=== PATIENT | male | born 1945 | race Caucasian/White ===

== ENCOUNTER 2018-04-13 06:52 | Inpatient (IN) ==
--- NOTE | 2018-04-12 23:45 | Discharge Summary ---
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 transplanted heart: [place] heart Associated angina: without angina Qualified Code(s): I25.810 - Atherosclerosis of coronary artery bypass graft(s) without angina pectoris (5) HTN (hypertension) Priority: Secondary Status: Chronic Qualifiers: Hypertension type: essential hypertension Qualified Code(s): I10 - Essential (primary) hypertension (6) Hx of CABG Priority: Secondary Status: Chronic - Hospital Course Hospital course: Mr. Downey is a 72 year old male - Time Spent with Patient Total time spent providing and/or coordinating discharge services: - Discharge Medications Home Medications: Atorvastatin [Lipitor] 40 mg PO QPM 08/16/15 [History] OxyCODONE Immed Rel [Roxicodone 5 MG] 5 mg PO Q6HR PRN 7 Days #28 tablet [Rx] Acetaminophen [Tylenol] 500 mg PO DAILY PRN 04/13/18 [History] Aspirin [Adult Aspirin] 81 mg PO DAILY 04/13/18 [History] Calcium Crb,Cit/D3/Min34/Ash [Citracal + Bone Density Tablet] 1 tab PO DAILY 04/13/18 [History] Lisinopril [Zestril] 20 mg PO DAILY 04/13/18 [History] Metoprolol Succinate [Kapspargo Sprinkle] 50 mg PO DAILY 04/13/18 [History] Multivitamin [Multivitamins] 1 each PO DAILY 04/13/18 [History] amLODIPine [Norvasc] 5 mg PO DAILY 04/13/18 [History] Allergies/Adverse Reactions: 3 Allergy/AdvReac Type Severity Reaction Status Date / Time No Known Allergies Allergy Verified 04/13/18 08:16 Primary care physician: Inocencio Kline MD - Patient Status Disposition: Home, Self-Care Condition: Good - Discharge Instructions Follow Up With: Inocencio Kline MD [Primary Care Provider] - <Shayy Quintanilla - Last Filed: 04/13/18 15:36> Orders not resulted at time of discharge: Pending orders 04/13/18 00:01 XR shoulder complete LT [XR] Routine H/H [Hemoglobin and Hematocrit] [HEME] Routine Date of Encounter: 04/13/18 Time of Encounter: 15:30 - Discharge Diagnosis (1) Status post reverse total replacement of left shoulder Priority: Primary Status: Acute Comments: Opsite dressing, leave intact until first post-operative visit. Zipline in place , plan to remove at post-operative day #14-16. If dressing becomes >50% saturated, contact office, remove dressing and place appropriate dressing in its place. Do not allow for dressing to get wet. Shoulder Precautions x 6 weeks. Apply cold therapy wrap 3-6x/day for 20 minutes at a time. Encourage ambulation throughout the day. Use Incentive spirometer 10x/hour. Elevate affected extremity above heart as tolerated. NWB to affected upper extremity x 6 weeks. Will remove brace at first post-operative appointment. OK to remove during PT/ OT and Home exercises. (2) Rotator cuff arthropathy of left shoulder Priority: Primary Status: Chronic (3) Hx of CABG Priority: Secondary Status: Chronic (4) CAD (coronary artery disease) Priority: Secondary Status: Chronic Qualifiers: Coronary Disease-Associated Artery/Lesion type: bypass graft [place] vs. transplanted heart: [place] heart Associated angina: without angina Qualified Code(s): I25.810 - Atherosclerosis of coronary artery bypass graft(s) without angina pectoris (5) HTN (hypertension) Priority: Secondary Status: Chronic Qualifiers: Hypertension type: essential hypertension Qualified Code(s): I10 - Essential (primary) hypertension - Hospital Course Hospital course: Mr. Downey is a 72 year old male, status post TSR-reverse. Patient had uneventful postoperative course. Stable for discharge. Afebrile, vital signs stable. Vital Signs Temp Pulse Resp BP Pulse Ox 04/13/18 12:40 97.6 F 57 111/71 95 04/13/18 11:50 97.7 F 58 137/79 94 04/13/18 11:14 97.7 F 66 128/77 93 04/13/18 10:42 97.7 F 56 12 128/76 92 04/13/18 10:32 97.3 F L 56 16 120/75 96 04/13/18 10:22 97.2 F L 56 16 126/75 94 04/13/18 10:12 57 16 126/79 94 04/13/18 10:02 57 16 125/77 94 04/13/18 09:52 97.5 F L 58 16 127/86 100 04/13/18 08:11 61 16 109/76 96 04/13/18 07:59 62 16 136/80 95 04/13/18 07:14 97.8 F 63 18 129/74 94 Intake and Output 04/12/18 04/13/18 04/13/18 23:59 07:59 15:59 Intake Total 20 / 20 Output Total 50 / 50 Balance -30 / -30 Intake: IV Fluids 20 / 20 Ancef Syringe 2,000 MG/20 ML 2, 20 / 20 000 mg In 20 ml @ 200 mls/hr IVPB PREOP ONE Rx#:[id number] Output: Estimated Blood Loss 50 / 50 Other: Weight 86.183 kg Patient Weight 04/13/18 23:59 Weight 86.183 kg Labs reviewed. H/H - stable, asymptomatic Short CBC 04/13/18 Range/Units 10:11 Hgb 12.6 L (12.9-16.9) g/dL Hct 38.4 (37.5-50.1) % Pain control: adequate Participating in PT. All questions and concerns addressed. Educated on use of incentive spirometer. Encouraged ambulation and proper hydration. Patient educated on post-operative restrictions and post-operative care. Assessment and plan: Continue with postoperative care Discharge plan: Home, discharge today with OP. - Time Spent with Patient Total time spent providing and/or coordinating discharge services: Date of admission: 04/13 Primary care physician: Inocencio Kline MD Discharging clinician: Shayy Quintanilla Anticipated date of discharge: 04/13/18 - Patient Status Functional capacity at discharge: independent ambulation Overall status at discharge: patient is progressing back to baseline
[2018-04-13] MEDS ORDERED: CeFAZolin Syr 2,000MG/20 ML 2,000 MG/20 ML SYRINGE IVPB ONE (07:14)
[2018-04-13] MEDS ORDERED: Ringers Solution, Lactated 500 ML IVC SCH (07:15)
--- NOTE | 2018-04-13 07:24 | Anesthesia Evaluation PreOp ---
Date of Encounter: 04/13/18 Time of Encounter: 07:22 - Past History Planned Operation: L total shoulder replacement reverse ball and socket Cardiac History: HTN, Hyperlipidemia, Cardiac Surgery (CABG x 4), Other (stress 05/2015: negative for ischemia EF 65%) Pulmonary History: Denies Any Significant HX [employer]PER History: Denies Any Significant HX Other Medical History: Other (diverticular bleed) Anesthesia History: No Prior Anesthetic Complications, Past Anesthesia ( colonoscopy,CABG, renetta shoulder sx) Alcohol Use: none Drug use: none Medications and Allergies Atorvastatin [Lipitor] 40 mg PO QPM 08/16/15 [History] Metoprolol XL (24 HR) Succ [Toprol Xl] 50 mg PO QPM 08/16/15 [History] Bifidobacter. Bifidum/B.longum [Florajen Bifidoblend Capsule] 460 mg PO BID #60 capsule 08/20/15 [Rx] Omeprazole [PriLOSEC] 40 mg PO DAILY #30 cap 08/20/15 [Rx] Cyclobenzaprine [Flexeril] 10 mg PO TID #30 tablet 09/27/16 [Rx] predniSONE [PredniSONE] 40 mg PO BIDWM #10 tablet 09/27/16 [Rx] OxyCODONE Immed Rel [Roxicodone 5 MG] 5 mg PO Q6HR PRN 7 Days #28 tablet [Rx] 3 Allergy/AdvReac Type Severity Reaction Status Date / Time No Known Allergies Allergy Verified 09/21/16 18:45 - Meds/Allergy Pre-op Review Medications Reviewed: Yes Allergies Reviewed: Yes Beta Blockers on Current Med List: Yes If Beta Blockers taken, Date/Time (Last Dose taken): Anesthesia Results - Labs Laboratory Tests 03/23/18 03/23/18 08:52 08:52 WBC 6.7 Hgb 15.2 Hct 45.7 Plt Count 208 Sodium 139 Potassium 4.1 Chloride 105 Carbon Dioxide 29 BUN 13 Creatinine 0.85 Glucose 100 - Imaging EKG: report reviewed (SINUS BRADYCARDIA WITH FIRST DEGREE AV BLOCK Electronically Signed On 12-08-2017 7:21:06 EDT by Goldie Kam) Anesthesia Exam O2 Sat Height 1.73 m Height 1.73 m Height 1.73 m Weight 86.183 kg Weight 86.183 kg Weight 86.183 kg O2 Sat by Pulse Oximetry 94 Vital Signs Temp Pulse Resp BP Pulse Ox 97.8 F 63 18 129/74 94 04/13/18 07:14 04/13/18 07:14 04/13/18 07:14 04/13/18 07:14 04/13/18 07:14 Height: 68" Weight: 190lbs NPO (# of Hours): >8 - HEENT Pupil (Motor): Pupils equal, EOMI Mallampati: II Teeth: Prosthesis Denture Type: Upper: Partial, Lower: Partial Oral Opening: Greater than 3 - [employer]LE [employer] LOC: Oriented [employer] Motor: Normal RUE, Normal LUE, Normal RLE, Normal LLE, Normal Face [employer] Sensory: Normal: RUE, LUE, RLE, LLE, Face - Cardiac Rhythm: Regular - Pulmonary Breath Sounds: bilateral Clear Respiratory Effort: Symmetrical Anesthesia Assess/Plan ASA Score: 3 Modified Desirae Scale for Level of Consciousness: Cooperative, oriented, and tranquil Anesthetic Plan: General, Regional (L brachial plexus) Monitoring Plan: Standard Monitors Recovery Plan: PACU
[2018-04-13] MEDS ORDERED: Acetaminophen IV 1,000 MG/100 ML INFUS..BTL ONE (07:30)
[2018-04-13] MEDS ORDERED: Lidocaine -MPF 2% 2 ML VIAL ONE (07:31)
[2018-04-13] MEDS ORDERED: Ondansetron 4 MG/2 ML VIAL ONE (07:31)
[2018-04-13] MEDS ORDERED: *HR* FentaNYL (PF) 100 MCG/2 ML VIAL ONE ×2 (07:31→10:45)
[2018-04-13] MEDS ORDERED: *HR* Midazolam HCl 2 MG/2 ML VIAL ONE (07:31)
[2018-04-13] MEDS ORDERED: Dexamethasone 4 MG/ML VIAL ONE (07:31)
[2018-04-13] MEDS ORDERED: *HR* Succinylcholine 200 MG/10 ML VIAL IVP ONE (07:31)
[2018-04-13] MEDS ORDERED: *HR* Propofol 200 MG/20 ML VIAL IVP ONE (07:32)
--- NOTE | 2018-04-13 07:42 | History & Physical Report ---
Date of Encounter: 04/13/18 Time of Encounter: 07:42 24 Hour HP Update - Instructions Instructions: If the History and Physical is less than 30 days old and was completed prior to A.M. admission and or procedure and has NOT been updated on calendar day of procedure please complete this update prior to performing procedure. - Update Patient reports changes in Medical Condition: No Changes in examination, assessment, or condition: No Changes in Medication: No Preop tests/diagnostics Reviewed: Yes Surgery Remains Indicated: Yes Consent for Planned Operative Procedure(s) Verified: Yes - Pre-Operative Checklist Preoperative Checklist Indicated: No Prophylactic Antibiotic Ordered: Yes Is VTE Prophylaxis Indicated?: Yes
[2018-04-13] MEDS ORDERED: ROPIVACAINE HCL/PF 0.5% 30 ML VIAL ONE (07:50)
[2018-04-13] MEDS ORDERED: Bupivacaine/Clonidine Syringe 1 EACH SYRINGE ONE (07:50)
[2018-04-13] MEDS ORDERED: *HR* HYDROmorphone (PF) 1 MG/ML SYRINGE IVP PRN ×2 (08:13→08:14)
[2018-04-13] MEDS ORDERED: Ondansetron 4 MG/2 ML VIAL IVP ONE ×2 (08:13→08:14)
[2018-04-13] MEDS ORDERED: *HR* OxyCODONE Immed Rel 5 MG TABLET PO PRN ×2 (08:13→10:59)
[2018-04-13] MEDS ORDERED: *HR* Promethazine 25 MG/ML VIAL IVP PRN ×2 (08:13→08:14)
[2018-04-13] MEDS ORDERED: *HR* Labetalol 20 MG/4 ML SYRINGE IVP PRN (08:13)
[2018-04-13] MEDS ORDERED: *HR* OxyCODONE/APAP 5/325 TABLET PO PRN ×2 (08:14→10:59)
[2018-04-13] MEDS ORDERED: Ringers Solution, Lactated 1,000 ML IVC SCH ×2 (08:15→10:59)
--- NOTE | 2018-04-13 08:18 | Anesthesia Procedures ---
Date of Encounter: 04/13/18 Time of Encounter: 08:02 Procedures: Anesthesia - Nerve Block Procedure Date: 04/13/18 Time: 08:02 Allergies/Adv Reactions: NKDA Surgical Procedure: L Total Shoulder Arthroplasty Checklist: Correct Patient Identifier, Correct procedure, History checked Correct side: Left Blood Thinner: No Monitor Applied: EKG, BP, Pulse Oximetry Supplemental Oxygen via Nasal Cannula (L/min): 2 Sedation: Versed (mg): 2 Sedation: Fentanyl (mcg): 100 Indication: Post Op Analgesia Pre-op Neuro Deficits: No Block Type: Supraclavicular, Other (Intercostobracheal and Intermediate Cervical Plexus Block) Catheter placed: No Sterile Technique: Yes Ultrasound used: Yes Anatomy identified: Yes Visual spread of Local: Yes Neuro Stimulation: No Blood on Needle Aspiration: No Smooth Injection of Local: Yes Pain with Injection of Local: No Prep: Chlorhexadine Needle: 22 x 50 mm Stimuplex Local: 0.25% Bupivicaine w/Clonidine 20 mcg/cc (10mL for Intercostobracheal and 10mL for Intermediate Cervical Plexus Block), Ropivacaine (30mL 0f 0.5% Ropivacaine with 8mg of decadron for Supraclavicular Block) Number of Attempts: 1 Complications: None/effective block Vitals: Vital Signs/O2 Sat/Glucose, Most Recent Temp Pulse Resp BP Pulse Ox 97.8 F 61 16 109/76 96 04/13/18 07:14 04/13/18 08:11 04/13/18 08:11 04/13/18 08:11 04/13/18 08:11
[2018-04-13] MEDS ORDERED: Lidocaine -MPF 4% 5 ML AMPUL ONE (08:36)
[2018-04-13] MEDS ORDERED: *HR* PHENYLEPHRINE 1,000 MCG/10 ML SYRINGE IVP ONE ×2 (08:45→09:27)
--- NOTE | 2018-04-13 09:43 | Orthopedic Operative Note ---
Date of procedure: 04/13/18 Pre-op diagnosis: Left shoulder cuff tear arthropathy Post-op diagnosis: same Procedure: Procedure: Total Shoulder Replacment Reverse, left hardware removal Estimated blood loss: 50 cc Hardware: Metal and polyethylene replacement: Arthrex 28, +2 , 30 screw glenoid baseplate, 2 4.5 screws. 2 5.5 screw, 42+4 glenosphere, 11 humeral stem , poly insert 3 Exam Under anesthesia: Full motion no stability Procedural Notes: Irreparable tear rotator cuff Operative procedure: The patient was brought to the operating room and placed on the operating room table. After general anesthesia was administered the operative shoulder was examined. Findings were noted. The patient was placed in the modified beachchair position. All pressure points were padded appropriately. And the head was stabilized in the neutral position. The operative extremity was prepped and draped in the sterile surgical fashion. The patient received IV antibiotics prior to skin incision. A standard deltopectoral approach was made to the operative shoulder. Incision was made to the skin and subcutaneous tissue,hemo stasis was obtained with Bovie cautery. Using careful blunt dissection the cephalic vein was identified and mobilized medially. The deltopectoral interval was developed and the clavipectoral fascia was incised. The subscap was released off the lesser tuberosity and tagged with #2 FiberWire suture subscap irreparable. The humerus was dislocated patient noted to have irreparable tear supraspinatus tendon, and the humeral cut was made along the anatomic neck. Anterior and posterior Bankart retractors were placed to expose the glenoid. The glenoid guide was seated and the centering hole was made. It was reamed with the appropriate reamer. The 28 millimeter plus 2 30 millimeter screw was seated and secured with (2) 4.5 screws and 2 5.5 screw. The baseplate was irrigated and dried and the 42+4 Glenosphere was seated and secured with the Turcios taper. The Turcios taper was tested and found to be secure the humerus was redislocated and prepared with the diaphyseal reamers, followed by a broaching process up to the appropriate size 11 in the patient's anatomic version. The metaphyseal reamer was then utilized. Multiple metal anchors were removed from the metaphysis at this point with a rongeur. Trial reduction found the shoulder to be relocatable. Trial components were removed and 11 stem was impacted in place in the patient's anatomic version. Trial reduction found the shoulder to be relocatable and stable with the appropriate 3. Trial component was removed and the real implant was seated and secured the shoulder was reduced. The shoulder had excellent motion and excellent stability and no evidence of dislocation. The deep tissue was irrigated with pulse irrigation. The PA close the shoulder. The deltopectoral interval was closed with a running #1 PDS suture, subcutaneous tissue was irrigated and closed with 0 PDS suture, the skin was closed with Dermabond. The patient was placed in a sterile dressing, abduction brace and extubated. The patient was then transferred to the recovery room in stable condition. Anesthesia: GETA Surgeon: Ramana Avila Was there an front desk assistant present: Yes Seat Maker: Shayy Quintanilla Estimated blood loss (cc): 50 Condition: stable Disposition: PACU
--- NOTE | 2018-04-13 10:14 | Anesthesia Evaluation Post Op ---
Date of Encounter: 04/13/18 Time of Encounter: 10:14 - Vital Signs Vital Signs: Vital Signs/O2 Sat, Most Current Temp Pulse Resp BP Pulse Ox 97.8 F 61 16 109/76 96 04/13/18 07:14 04/13/18 08:11 04/13/18 08:11 04/13/18 08:11 04/13/18 08:11 - Lungs Lungs: Clear Ascult./Percussion - Airway Airway: Non-obstructed - Cardiovascular Regular Rate - Mental Status Mental Status: Alert & Oriented, Answers Appropriately - Pain Pain Scale: 0 Pain Scale used: Numeric (1 - 10) - Nausea Vomiting Nausea Vomiting: Not Present - Hydration Hydration: NPO - Discharge PostOp Status: Transfer Patient to floor
[2018-04-13 10:40] LABS: Hematocrit 38.4 % (37.5-50.1); Hemoglobin 12.6 g/dL (12.9-16.9)
[2018-04-13] MEDS ORDERED: *HR* Rocuronium Bromide 50 MG/5 ML VIAL ONE (10:53)
[2018-04-13] MEDS ORDERED: MOM Conc 10 ML UD.LIQ PO PRN (10:59)
[2018-04-13] MEDS ORDERED: traMADol 50 MG TABLET PO PRN (10:59)
[2018-04-13] MEDS ORDERED: Ondansetron 4 MG/2 ML VIAL IVP PRN (10:59)
[2018-04-13] MEDS ORDERED: Temazepam 15 MG CAPSULE PO PRN (10:59)
[2018-04-13] MEDS ORDERED: Sennosides 8.6 MG TABLET PO PRN (10:59)
[2018-04-13] MEDS ORDERED: Naloxone 0.4 MG/ML INJ IVP PRN (10:59)
[2018-04-13 12:46] VITALS: BP 111/71
[2018-04-13] MEDS ORDERED: *HR* Enoxaparin 30 MG/0.3 ML SYRINGE SQ SCH ×2 (15:45→18:00)
[2018-04-14] MEDS ORDERED: amLODIPine 5 MG TABLET PO SCH (09:00)
[2018-04-14] MEDS ORDERED: Lisinopril 20 MG TABLET PO SCH (09:00)
[2018-04-14] MEDS ORDERED: Aspirin Enteric Coated 81 MG Tablet PO SCH (09:00)
[2018-04-14] MEDS ORDERED: Multivit/Ca/Min/Fe/FA 1 TAB TABLET PO SCH (09:00)
[2018-04-14] MEDS ORDERED: [UNRECOGNIZED DRUG - OTHER] PO SCH (09:00)
== END 2018-04-13 16:57 | disposition home or self-care (01) | DRG 483 ==
LOC: SAMDAY 06:52 → 3NENU 13:58
PROVIDERS: ADMIT Orthopaedic Surgery; ATTEND Orthopaedic Surgery